=== PATIENT | male | born 1950 | race Caucasian/White ===

== ENCOUNTER 2024-01-22 19:59 | Emergency (ER) | payer BC, MEDICARE ==
[2024-01-22 20:27] VITALS: RESP 18; TEMP 97.6
[2024-01-22 21:23] LABS: Basophils % (A) 0 %; Eosinophils # (A) 0.1 k/uL (0-0.7); Eosinophils % (A) 1 %; HCT 47.7 % (39.0-53.0); HGB 15.3 gm/dL (13.0-17.5); Lymphocytes # (A) 0.5 k/uL (1.0-4.8); Lymphocytes % (A) 6 %; MCH 30.1 pg (25.0-35.0); Mean Platelet Volume 7.5; Monocytes # (A) 0.3 k/uL (0-1.0); Monocytes % (A) 3 %; Neutrophils % (A) 89 %; Platelet Count 238 k/uL (150-450); RBC 5.08 m/uL (4.30-5.90); RDW 13.9 % (11.5-15.5)
[2024-01-22 21:37] LABS: AST 245 U/L (17-59); African American GFR (CKD) >90 (>60 ml/min/1.73 sqM); Alkaline Phosphatase 80 U/L (38-126); Blood Urea Nitrogen 26 mg/dL (9-20); Calcium 9.5 mg/dL (8.4-10.2); Carbon Dioxide 26 mmol/L (22-30); Glucose 153 mg/dL (74-99); Non-African American GFR(CKD) 84 (>60 ml/min/1.73 sqM); Total Bilirubin 1.9 mg/dL (0.2-1.3); Total Protein 6.7 g/dL (6.3-8.2)
[2024-01-22 21:43] LABS: Partial Thromboplastin Time 22.1 sec (22.0-30.0); Prothrombin Time 10.6 sec (10.0-12.5)
[2024-01-22 21:45] LABS: Appearance,Urine Clear (Clear); Bilirubin,Urine Negative (Negative); Blood,Urine Negative (Negative); Color,Urine Yellow; Glucose,Urine (UA) Negative (Negative); Ketones,Urine Negative (Negative); Leukocyte Esterase,Urine Negative (Negative); Nitrite,Urine Negative (Negative); Protein,Urine Negative (Negative); Urobilinogen,Urine <2.0 mg/dL (<2.0)
--- NOTE | 2024-01-22 21:54 | ED ---
Abdominal Pain HPI - General Source: patient, family, RN notes reviewed Mode of arrival: wheelchair Limitations: no limitations <Annia Walker - Last Filed: 01/23/24 12:42> <Angelo Barrow - Last Filed: 01/30/24 22:58> - General Chief Complaint: Abdominal Pain Stated Complaint: Abd Pain Time Seen by Provider: 01/22/24 20:12 - History of Present Illness Initial Comments: This is a 73-year-old male presents emergency department chief complaint of diffuse abdominal pain. Patient states that this afternoon began experiencing epigastric abdominal pain with associated nausea, chills, and chest pain. He states that this pain is now migrated to his lower abdomen and is diffuse. He denies episodes of emesis. He denies symptoms of dysuria, hematuria, increase in urinary frequency or urgency, hematochezia, dark stools. Denies previous surgical abdominal history. Denies drug use. States that he drinks approx imately 4-5 times a week consuming upwards of 4 glasses of wine or more. Denies history of alcohol withdrawal. (Annia Walker) - Related Data Allergies Allergy/AdvReac Type Severity Reaction Status Date / Time No Known Allergies Allergy Verified 01/22/24 20:21 Review of Systems ROS Other: All systems not noted in ROS Statement are negative. <Annia Walker - Last Filed: 01/23/24 12:42> ROS Other: All systems not noted in ROS Statement are negative. <Angelo Barrow - Last Filed: 01/30/24 22:58> ROS Statement: Those systems with pertinent positive or pertinent negative responses have been documented in the HPI. Past Medical History Past Medical History: COPD, CVA/TIA, Hyperlipidemia, Hypertension History of Any Multi-Drug Resistant Organisms: None Reported Past Surgical History: No Surgical Hx Reported Past Psychological History: No Psychological Hx Reported Smoking Status: Never smoker Past Alcohol Use History: Daily, Occasional Past Drug Use History: None Reported <Annia Walker - Last Filed: 01/23/24 12:42> General Exam Limitations: no limitations General appearance: alert, in no apparent distress Head exam: Present: atraumatic, normocephalic, normal inspection Eye exam: Present: normal appearance, PERRL, EOMI. Absent: scleral icterus, conjunctival injection, periorbital swelling ENT exam: Present: normal exam, mucous membranes moist Neck exam: Present: normal inspection. Absent: tenderness, meningismus, lymphadenopathy Respiratory exam: Present: normal lung sounds bilaterally. Absent: respiratory distress, wheezes, rales, rhonchi, stridor Cardiovascular Exam: Present: regular rate, normal rhythm, normal heart sounds. Absent: systolic murmur, diastolic murmur, rubs, gallop, clicks GI/Abdominal exam: Present: soft, distended, tenderness (diffuse), rebound, hyperactive bowel sounds. Absent: rigid Extremities exam: Present: normal inspection, full ROM, normal capillary refill. Absent: tenderness, pedal edema, joint swelling, calf tenderness Back exam: Present: normal inspection Neurological exam: Present: alert, oriented X3, CN II-XII intact Psychiatric exam: Present: normal affect, normal mood Skin exam: Present: warm, dry, intact, normal color. Absent: rash <Annia Walker - Last Filed: 01/23/24 12:42> Course Vital Signs 01/22/24 01/22/24 01/23/24 20:22 22:11 01:30 Temperature 97.6 F Pulse Rate 59 L 69 79 Respiratory 18 18 18 Rate Blood Pressure 137/85 167/90 140/76 O2 Sat by Pulse 97 97 97 Oximetry Medical Decision Making - Lab Data Result diagrams: 01/22/24 21:10 01/22/24 21:10 <Annia Walker - Last Filed: 01/23/24 12:42> - Lab Data Result diagrams: 01/22/24 21:10 01/22/24 21:10 <Angelo Barrow - Last Filed: 01/30/24 22:58> - Medical Decision Making Was pt. sent in by a medical professional or institution (, PA, SENIOR STORAGE ENGINEER, urgent care, hospital, or fci...) When possible be specific @ -No Did you speak to anyone other than the patient for history (EMS, parent, family, police, friend...)? What history was obtained from this source @ -No Did you review nursing and triage notes (agree or disagree)? Why? @ -I reviewed and agree with nursing and triage notes Were old charts reviewed (outside hosp., previous admission, EMS record, old EKG, old radiological studies, urgent care reports/EKG's, fci records)? Report findings @ -No old charts were reviewed Differential Diagnosis (chest pain, altered mental status, abdominal pain women, abdominal pain men, vaginal bleeding, weakness, fever, dyspnea, syncope, headache, dizziness, GI bleed, back pain, seizure, CVA, palpatations, mental health, musculoskeletal)? @ -Differential Abdominal Pain Men: Appendicitis, cholecystitis, diverticulosis, ischemic bowel, pancreatitis, hepatitis, UTI, gastroenteritis, AAA, incarcerated hernia, bowel obstruction, constipation, inflammatory bowel, hepatitis, peptic ulcer disease, splenic infarction, perforated viscus, testicular torsion, this is not meant to be an all-inclusive list EKG interpreted by me (3pts min.). @ -completed at 2031, sinus bradycardia, ventricular rate 52, CT interval 174, QTc 470. No acute signs of ischemia X-rays interpreted by me (1pt min.). @ -xray KUB no significant findings, nonspecific bowel gas pattern. CT interpreted by me (1pt min.). @ -CT of the abdomen and pelvis with contrast reveals edema surrounding the pancreas consistent with pancreatitis. Gallbladder and bile ducts are unremarkable with no calcified stones and no ductal dilation, liver is unremarkable. U/S interpreted by me (1pt. min.). @ -US right upper quadrant dictation/impression completed at 324 after patient has left AGAINST MEDICAL ADVICE reveals cholelithiasis with diffuse bladder wall mural thickening and common tail artifact with trace pericholecystic fluid with associated adenomyomatosis. Normal common bile duct. What testing was considered but not performed or refused? (CT, X-rays, U/S, lab s)? Why? @ -None What meds were considered but not given or refused? Why? @ -None Did you discuss the management of the patient with other professionals (professionals i.e. , PA, SENIOR STORAGE ENGINEER, lab, RT, psych nurse, social psychologist, chicken stuffer, teacher, community liaison officer, case checker)? Give summary @ -Spoke with Sound physician, Dr. Trujillo, in regard to admission, it was recommended that patient be transferred to a facility with GI coverage due to elevated LFTs. Was smoking cessation discussed for >3mins.? @ -No Was critical care preformed (if so, how long)? @ -No Were there social determinants of health that impacted care today? How? (Homelessness, low income, unemployed, alcoholism, drug addiction, trans portation, low edu. Level, literacy, decrease access to med. care, fci, rehab)? @ -No Was there de-escalation of care discussed even if they declined (Discuss DNR or withdrawal of care, Hospice)? DNR status @ -No What co-morbidities impacted this encounter? (DM, HTN, Smoking, COPD, CAD, Cancer, CVA, ARF, Chemo, Hep., AIDS, mental health diagnosis, sleep apnea, morbid obesity)? @ -None Was patient admitted / discharged? Hospital course, mention meds given and route, prescriptions, significant lab abnormalities, going to OR and other pertinent info. @ -transferred. 73-year-old male with abdominal pain. On my examination patient is noted to have diffuse abdominal pain with rebound tenderness upper abdomen is soft. Due to diffuse abdominal pain he will be sent for a CT scan patient provided with pain medication. CBC and coagulation profile unremarkable, patient's CMP reveals a transaminitis with an elevated AST and ALT, additionally patient's amylase and lipase are elevated with a amylase of 3118, and lipase [place] [address]. [address] interpretation patient sent for ultrasound of the right upper quadrant with concern for transaminitis and elevated pancreatic enzymes. Urinalysis no signs of infection. CT concerning for edema of the pancreas consistent with pancreatitis. Fluid bolus ordered and pain medication. Patient was instructed of the necessity to be transferred to a facility with gastroenterology coverage. Patient request that he be transferred to [facility] that is close to his home. Midst of establishing transfer, transfer packet was made, on discussion with the patient in the room he states that he would like to leave and report to the emergency department at [facility] by himself. Additionally, patient left before the results of US were dictated and published by radiology, and patient has again verbalized understanding of the risks of leaving the hospital against medical advice. Patient states that he is feeling more comfortable and would like to go by private vehicle to the other emergency department. Risks have been discussed with the patient at bedside he is verbalized understanding. Patient will be leaving AGAINST MEDICAL ADVICE and reporting to [facility] for further evaluation of pancreatitis. Discussed with Dr. Barrow Undiagnosed new problem with uncertain prognosis? @ -No Drug Therapy requiring intensive monitoring for toxicity (Heparin, Nitro, Insulin, Cardizem)? @ -No Were any procedures done? @ -No Diagnosis/symptom? @ -pancreatitis, abdominal pain Acute, or Chronic, or Acute on Chronic? @ -acute Uncomplicated (without systemic symptoms) or Complicated (systemic symptoms)? @ -complicated Side effects of treatment? @ -No Exacerbation, Progression, or Severe Exacerbation? @ -No Poses a threat to life or bodily function? How? (Chest pain, USA, CT, pneumonia, PE, COPD, DKA, ARF, appy, cholecystitis, CVA, Diverticulitis, Homicidal, Suicidal, threat to staff... and all critical care pts) @ -No (Annia Walker) I did see this patient, perform history and physical and discussed results with the patient. I did explain the transfer process and that I felt that it was unsafe for the patient to go to the other facility before we were able to verify that they did indeed have beds and the specialist required to provide further care for him, but the patient states that he is going to go there anyways as it is close to his home. The patient did sign AGAINST MEDICAL ADVICE. Discussed return parameters and follow-up. As the transfer packet had been prepared the patient was given papers to take to which ever physician he decides to use for follow-up. (Angelo Barrow) - Lab Data Lab Results 01/22/24 01/22/24 01/22/24 Range/Units 21:10 21:10 21:10 WBC 9.0 (3.8-10.6) k/uL RBC 5.08 (4.30-5.90) m/uL Hgb 15.3 (13.0-17.5) gm/dL Hct 47.7 (39.0-53.0) % MCV 94.0 (80.0-100.0) fL MCH 30.1 (25.0-35.0) pg MCHC 32.0 (31.0-37.0) g/dL RDW 13.9 (11.5-15.5) % Plt Count 238 (150-450) k/uL MPV 7.5 Neutrophils % 89 % Lymphocytes % 6 % Monocytes % 3 % Eosinophils % 1 % Basophils % 0 % Neutrophils # 8.0 H (1.3-7.7) k/uL Lymphocytes # 0.5 L (1.0-4.8) k/uL Monocytes # 0.3 (0-1.0) k/uL Eosinophils # 0.1 (0-0.7) k/uL Basophils # 0.0 (0-0.2) k/uL PT (10.0-12.5) sec INR (<1.2) APTT (22.0-30.0) sec Sodium 139 (137-145) mmol/L Potassium 3.9 (3.5-5.1) mmol/L Chloride 109 H (98-107) mmol/L Carbon Dioxide 26 (22-30) mmol/L Anion Gap 4 mmol/L BUN 26 H (9-20) mg/dL Creatinine 0.91 (0.66-1.25) mg/dL Est GFR (CKD-EPI)AfAm >90 (>60 ml/min/1.73 sqM) Est GFR (CKD-EPI)NonAf 84 (>60 ml/min/1.73 sqM) Glucose 153 H (74-99) mg/dL Plasma Lactic Acid [place] 1.6 (0.7-2.0) mmol/L Calcium 9.5 (8.4-10.2) mg/dL Total Bilirubin 1.9 H (0.2-1.3) mg/dL AST 245 H (17-59) U/L ALT 165 H (4-49) U/L Alkaline Phosphatase 80 (38-126) U/L Troponin I (0.000-0.034) ng/mL NT-Pro-B Natriuret Pep pg/mL Total Protein 6.7 (6.3-8.2) g/dL Albumin 4.0 (3.5-5.0) g/dL Amylase 3118 H* (30-110) U/L Lipase >11578 H (23-300) U/L Urine Color Urine Appearance (Clear) Urine pH (5.0-8.0) Ur Specific [place] (1.001-1.035) Urine Protein (Negative) Urine Glucose (UA) (Negative) Urine Ketones (Negative) Urine Blood (Negative) Urine Nitrite (Negative) Urine Bilirubin (Negative) Urine Urobilinogen (<2.0) mg/dL Ur Leukocyte Esterase (Negative) 01/22/24 01/22/24 01/22/24 Range/Units 21:10 21:10 21:10 WBC (3.8-10.6) k/uL RBC (4.30-5.90) m/uL Hgb (13.0-17.5) gm/dL Hct (39.0-53.0) % MCV (80.0-100.0) fL MCH (25.0-35.0) pg MCHC (31.0-37.0) g/dL RDW (11.5-15.5) % Plt Count (150-450) k/uL MPV Neutrophils % % Lymphocytes % % Monocytes % % Eosinophils % % Basophils % % Neutrophils # (1.3-7.7) k/uL Lymphocytes # (1.0-4.8) k/uL Monocytes # (0-1.0) k/uL Eosinophils # (0-0.7) k/uL Basophils # (0-0.2) k/uL PT 10.6 (10.0-12.5) sec INR 1.0 (<1.2) APTT 22.1 (22.0-30.0) sec Sodium (137-145) mmol/L Potassium (3.5-5.1) mmol/L Chloride (98-107) mmol/L Carbon Dioxide (22-30) mmol/L Anion Gap mmol/L BUN (9-20) mg/dL Creatinine (0.66-1.25) mg/dL Est GFR (CKD-EPI)AfAm (>60 ml/min/1.73 sqM) Est GFR (CKD-EPI)NonAf (>60 ml/min/1.73 sqM) Glucose (74-99) mg/dL Plasma Lactic Acid [place] (0.7-2.0) mmol/L Calcium (8.4-10.2) mg/dL Total Bilirubin (0.2-1.3) mg/dL AST (17-59) U/L ALT (4-49) U/L Alkaline Phosphatase (38-126) U/L Troponin I <0.012 (0.000-0.034) ng/mL NT-Pro-B Natriuret Pep 557 pg/mL Total Protein (6.3-8.2) g/dL Albumin (3.5-5.0) g/dL Amylase (30-110) U/L Lipase (23-300) U/L Urine Color Urine Appearance (Clear) Urine pH (5.0-8.0) Ur Specific [place] (1.001-1.035) Urine Protein (Negative) Urine Glucose (UA) (Negative) Urine Ketones (Negative) Urine Blood (Negative) Urine Nitrite (Negative) Urine Bilirubin (Negative) Urine Urobilinogen (<2.0) mg/dL Ur Leukocyte Esterase (Negative) 01/22/24 Range/Units 21:35 WBC (3.8-10.6) k/uL RBC (4.30-5.90) m/uL Hgb (13.0-17.5) gm/dL Hct (39.0-53.0) % MCV (80.0-100.0) fL MCH (25.0-35.0) pg MCHC (31.0-37.0) g/dL RDW (11.5-15.5) % Plt Count (150-450) k/uL MPV Neutrophils % % Lymphocytes % % Monocytes % % Eosinophils % % Basophils % % Neutrophils # (1.3-7.7) k/uL Lymphocytes # (1.0-4.8) k/uL Monocytes # (0-1.0) k/uL Eosinophils # (0-0.7) k/uL Basophils # (0-0.2) k/uL PT (10.0-12.5) sec INR (<1.2) APTT (22.0-30.0) sec Sodium (137-145) mmol/L Potassium (3.5-5.1) mmol/L Chloride (98-107) mmol/L Carbon Dioxide (22-30) mmol/L Anion Gap mmol/L BUN (9-20) mg/dL Creatinine (0.66-1.25) mg/dL Est GFR (CKD-EPI)AfAm (>60 ml/min/1.73 sqM) Est GFR (CKD-EPI)NonAf (>60 ml/min/1.73 sqM) Glucose (74-99) mg/dL Plasma Lactic Acid [place] (0.7-2.0) mmol/L Calcium (8.4-10.2) mg/dL Total Bilirubin (0.2-1.3) mg/dL AST (17-59) U/L ALT (4-49) U/L Alkaline Phosphatase (38-126) U/L Troponin I (0.000-0.034) ng/mL NT-Pro-B Natriuret Pep pg/mL Total Protein (6.3-8.2) g/dL Albumin (3.5-5.0) g/dL Amylase (30-110) U/L Lipase (23-300) U/L Urine Color Yellow Urine Appearance Clear (Clear) Urine pH 5.0 (5.0-8.0) Ur Specific [place] 1.010 (1.001-1.035) Urine Protein Negative (Negative) Urine Glucose (UA) Negative (Negative) Urine Ketones Negative (Negative) Urine Blood Negative (Negative) Urine Nitrite Negative (Negative) Urine Bilirubin Negative (Negative) Urine Urobilinogen <2.0 (<2.0) mg/dL Ur Leukocyte Esterase Negative (Negative) Disposition Is patient prescribed a controlled substance at d/c from ED?: No <Annia Walker - Last Filed: 01/23/24 12:42> <Angelo Barrow - Last Filed: 01/30/24 22:58> Clinical Impression: Pancreatitis, Left against medical advice Disposition: LEFT AGAINST MEDICAL ADVICE Condition: Serious Referrals: Nonstaff,Physician [Primary Care Provider] - 1-2 days
--- NOTE | 2024-01-22 21:57 | XR ---
EXAMINATION TYPE: XR KUB DATE OF EXAM: 01/22/2024 9:25 PM CLINICAL INDICATION:Male, 73 years old with history of abdominal pain; H COMPARISON: None. TECHNIQUE: One radiographic view of the abdomen was obtained. FINDINGS: The bowel gas pattern is nonspecific without dilated loops of small or large bowel. There i s no evidence for organomegaly or pneumoperitoneum. The osseous structures are intact. No abnormal calcifications are present. Fecal material and gas are demonstrated throughout the colon and rectum. IMPRESSION: Nonspecific bowel gas pattern without radiographic evidence for acute process.
[2024-01-22] MEDS: ONDANSETRON 4 MG/2 ML VIAL IVP STA (21:59)
[2024-01-22] MEDS: MORPHINE SULFATE 2 MG/ML SYRINGE IVP ONE (22:07)
[2024-01-22] MEDS: SODIUM CHLORIDE 0.9% 1,000 ML IV STA (22:08)
[2024-01-22 22:16] LABS: ALT 165 U/L (4-49); Anion Gap 4 mmol/L; Chloride 109 mmol/L (98-107); Potassium 3.9 mmol/L (3.5-5.1); Sodium 139 mmol/L (137-145)
[2024-01-22 23:20] LABS: Amylase 3118 U/L (30-110); Lipase >20000 U/L (23-300)
[2024-01-22] MEDS: MORPHINE SULFATE 4 MG/ML SYRINGE IVP STA (23:49)
--- NOTE | 2024-01-23 00:38 | CT ---
EXAM: CT Abdomen and Pelvis With Intravenous Contrast CLINICAL HISTORY: ITS.REASON CT Reason: diffuse ab. pain TECHNIQUE: Axial computed tomography images of the abdomen and pelvis with intravenous contrast. CTDI is 27.5 mGy and DLP is 1413.2 mGy-cm. This CT exam was performed using one or more of the following dose reduction techniques: automated exposure control, adjustment of the mA and/or kV according to patient size, and/or use of iterative reconstruction technique. COMPARISON: No relevant prior studies available. FINDINGS: Lung bases: Unremarkable. No mass. No consolidation. ABDOMEN: Liver: Unremarkable. No mass. Gallbladder and bile ducts: Unremarkable. No calcified stones. No ductal dilation. Pancreas: Edema surrounding the pancreas, consistent with pancreatitis. No ductal dilation. Spleen: Unremarkable. No splenomegaly. Adrenals: Unremarkable. No mass. Kidneys and ureters: Unremarkable. No solid mass. No hydronephrosis. Stomach and bowel: Wall thickening of the adjacent duodenum. No obstruction. PELVIS: Appendix: No findings to suggest acute appendicitis. Bladder: Unremarkable. No mass. Reproductive: Unremarkable as visualized. ABDOMEN and PELVIS: Intraperitoneal space: Unremarkable. No free air. No significant fluid collection. Bones/joints: No acute fracture. No dislocation. Soft tissues: Small fat-containing bilateral inguinal hernias. Vasculature: Unremarkable. No abdominal aortic aneurysm. Lymph nodes: Unremarkable. No enlarged lymph nodes. Other findings: Cysts. IMPRESSION: Edema surrounding the pancreas, consistent with pancreatitis.
[2024-01-23] MEDS: SODIUM CHLORIDE 0.9% 1,000 ML IV STA (01:09)
[2024-01-23 02:08] VITALS: BP 140/76; PULSE 79
--- NOTE | 2024-01-23 03:27 | US ---
EXAM: US Abdomen Limited, Gallbladder CLINICAL HISTORY: ITS.REASON US Reason: abdominal pain, elevated amylase and lipase TECHNIQUE: Real-time ultrasound of the right upper quadrant with image documentation. COMPARISON: CT abdomen/pelvis: 01/22/2024 FINDINGS: Exam was limited due to excessive bowel gas. Gallbladder: Diffuse mural thickening/increased bladder wall thickness: 10 mm with comet-tail artifacts. Gallstones and small pericholecystic fluid is seen, concerning for an acute cholecystitis with associated adenomyomatosis. Common bile duct: Unremarkable as visualized. No stones. No dilation. 5.0 mm in diameter. Pancreas: Unremarkable as visualized. The liver measures 17.1 cm in length, demonstrating increased parenchymal echogenicity/fatty infiltration.. Right kidney measures 11.0 cm in length. No hydronephrosis or discernible mass. No obvious calculi. IMPRESSION: Cholelithiasis, diffuse bladder wall mural thickening, comet tail artifacts and trace pericholecystic fluid, suggestive of an acute cholecystitis with an associated adenomyomatosis. Clinical correlation is advised. Normal CBD. Mild hepatomegaly. Diffuse fatty hepatic infiltration. .
== END 2024-01-23 03:01 | disposition left against medical advice (07) ==
LOC: EC 19:59
DX: K85.90 Acute pancreatitis without necrosis or infection, unspecified (principal); Z53.29 Procedure and treatment not carried out because of patient's decision for other reasons
CPT/HCPCS: 36415; 93005; 83880; 80053; 82150; 83605; 83690; 84484; 85025; 85610; 85730; 81003; 74018; 76705; 74177; 99285; 96374; 96375; 96361 ×2; 96376; J2270 ×2; J2405; Q9967